=== PATIENT | male | born 1990 | race Caucasian/White ===

== ENCOUNTER 2019-01-10 20:33 | Emergency (ER) | payer SELFPAY ==
[~2019-01-10] VITALS: Ht 167.6 cm; Wt 68.0 kg
[2019-01-10 20:39] VITALS: BP 124/76
== END 2019-01-11 00:42 | disposition left against medical advice (07) ==
LOC: ER 20:48
DX: M79.643 Pain in unspecified hand (principal); Z53.21 Procedure and treatment not carried out due to patient leaving prior to being seen by health care provider